=== PATIENT | male | born 1995 | race Hispanic/Latino ===

== ENCOUNTER 2021-04-16 11:28 | Emergency (ER) | payer SELFPAY ==
--- NOTE | 2021-04-16 12:25 | RAD REPORT ---
EXAM DESCRIPTION: RAD - Chest Single View - 04/16/2021 12:14 pm CLINICAL HISTORY: HEMOPTYSIS COMPARISON: No comparisons FINDINGS: Lines: None. Lungs: No evidence of edema or pneumonia. Pleural: No significant pleural effusions or pneumothorax. Cardiac: The heart size is within normal limits. Bones: No acute fractures. Other: IMPRESSION: No acute cardiopulmonary disease.
[2021-04-16 12:49] LABS: BUN Blood Urea Nitrogen 12 mg/dL (7-18); Bicarbonate 28 mmol/L (21-32); Glucose Level 103 mg/dL (74-106); Potassium 3.8 mmol/L (3.5-5.1); Sodium Level 143 mmol/L (136-145)
--- NOTE | 2021-04-16 14:22 | EDPHYS ---
Physician Documentation [facility] Name: Fer Contreras Age: 26 yrs Sex: Male : 1995 Arrival Date: 04/16/2021 Time: 11:33 Bed 12 Private MD: JIN Physician Isai Mims HPI: 04/16 11:51 This 26 yrs old Male presents to ER via Ambulatory with complaints of Coughing jmm up blood. 11:51 The patient or guardian reports cough. Onset: The symptoms/episode began/occurred jmm acutely, today. Modifying factors: The symptoms are alleviated by nothing. the symptoms are aggravated by nothing. Associated signs and symptoms: Pertinent positives: sore throat. This is a 26-year-old male with no chronic medical conditions presents emerged department with complaints of sore throat, states he coughed up a large amount of blood multiple times earlier today. Patient states he does have some slight chest discomfort.. Historical: - Allergies: 11:40 SHELLFISH; ap3 - Home Meds: 11:40 None [Active]; ap3 - PMHx: 11:40 None; ap3 - Immunization history:: Adult Immunizations unknown, Client reports having NOT received the Covid vaccine. - Social history:: Smoking status: Reported history of juuling and/or vaping. Patient uses alcohol, only on a social basis. ROS: 11:51 Constitutional: Negative for fever, chills, and weight loss. jmm 11:51 Abdomen/GI: Negative for abdominal pain, nausea, vomiting, diarrhea, and constipation. 11:51 ENT: Positive for sinus congestion. 11:51 Respiratory: Positive for cough, hemoptysis. 11:51 All other systems are negative. Exam: 11:51 Constitutional: This is a well developed, well nourished patient who is awake, alert, jmm and in no acute distress. Head/Face: atraumatic. Eyes: EOMI, no conjunctival erythema appreciated ENT: Moist Mucus Membranes Neck: Trachea midline, Supple Chest/axilla: Normal chest wall appearance and motion. Cardiovascular: Regular rate and rhythm. No edema appreciated 11:51 Skin: General appearance color normal MS/ Extremity: Moves all extremities, no obvious deformities appreciated, no edema noted to the lower extremities Neuro: Awake and alert, normal gait Psych: Behavior is normal, Mood is normal, Patient is cooperative and pleasant 11:51 Respiratory: the patient does not display signs of respiratory distress, Respirations: normal, Breath sounds: are clear throughout. Vital Signs: 11:38 Temp 97.8(TE); Weight 63.5 kg; Height 5 ft. 5 in. (165.10 cm); ap3 11:38 BP 135 / 76; Pulse 78; Resp 17; Pulse Ox 100% on R/A; ap3 13:08 BP 137 / 81; Pulse 71; Resp 17; Pulse Ox 100% on R/A; ap3 11:38 Body Mass Index 23.30 (63.50 kg, 165.10 cm) ap3 MDM: 11:53 Patient medically screened. jarod 14:19 Data reviewed: vital signs, nurses notes. Counseling: I had a detailed discussion with linda the patient and/or guardian regarding: the historical points, exam findings, and any diagnostic results supporting the discharge/admit diagnosis, lab results, radiology results, the need for outpatient follow up, to return to the emergency department if symptoms worsen or persist or if there are any questions or concerns that arise at home. 04/16 12:01 Order name: D-Dimer; Complete Time: 12:47 [facility] 04/16 12:01 Order name: BMP; Complete Time: 12:59 [facility] 04/16 12:01 Order name: Saline Lock; Complete Time: 12:25 [facility] 04/16 12:01 Order name: Chest Single View XRAY; Complete Time: 12:27 [facility] 04/16 12:01 Order name: Strep; Complete Time: 12:59 [facility] 04/16 12:48 Order name: Throat Culture EDMS Administered Medications: No medications were administered Disposition: 23:13 Co-signature as Attending Physician, Isai Mims MD I agree with the assessment and jarod plan of care. Disposition Summary: 04/16/21 14:20 Discharge Ordered Location: Home [facility] Condition: Stable [facility] Diagnosis - Acute pharyngitis, unspecified [facility] Followup: [facility] - With: Private Physician - When: 2 - 3 days - Reason: Recheck today's complaints, Continuance of care, Re-evaluation by your physician Discharge Instructions: - Discharge Summary Sheet linda - Hemoptysis sherri - Pharyngitis [facility] Forms: - Medication Reconciliation Form [facility] - Thank You Letter jmm - Antibiotic Education jmm - Prescription Opioid Use jmm - Work release form as Prescriptions: - Amoxicillin 875 mg Oral Tablet - take 1 tablet by ORAL route every 12 hours for 10 days; 20 tablet; Refills: 0, jmm Product Selection Permitted Signatures: Dispatcher [employer] Isai Farley MD MD cha Mickail, Joel, PA PA jmm Prokisch, Amanda, RN RN ap3 Corrections: (The following items were deleted from the chart) 11:41 11:40 Allergies: No Known Allergies; ap3 ap3
--- NOTE | 2021-04-16 14:22 | ER ---
Nurse's Notes [facility] Name: Fer Contreras Age: 26 yrs Sex: Male : 1995 Arrival Date: 04/16/2021 Time: 11:33 Bed 12 Private MD: Diagnosis: Acute pharyngitis, unspecified Presentation: 04/16 11:38 Chief complaint: Patient states: He has had runny nose and "sinuses have been acting ap3 up" the last few days. Patient reports having blood in his sputum starting this morning. Coronavirus screen: congestion. Ebola Screen: No symptoms or risks identified at this time. Initial Sepsis Screen: Does the patient meet any 2 criteria? No. Patient's initial sepsis screen is negative. Does the patient have a suspected source of infection? No. Patient's initial sepsis screen is negative. Risk Assessment: Do you want to hurt yourself or someone else? Patient reports no desire to harm self or others. Onset of symptoms was April 14, 2021. 11:38 Method Of Arrival: Ambulatory ap3 11:38 Acuity: SHONNA 4 ap3 Triage Assessment: 11:41 General: Appears in no apparent distress. comfortable, Behavior is calm, cooperative, ap3 appropriate for age. Pain: Denies pain. EENT: Parent/caregiver reports the patient having nasal congestion. Neuro: Level of Consciousness is awake, alert, obeys commands, Oriented to person, place, time, situation, Appropriate for age Moves all extremities. Gait is steady, Speech is normal. Cardiovascular: Patient's skin is warm and dry. Respiratory: Reports allergy symptoms for the last 2-3 days Airway is patent Respiratory effort is even, unlabored, Breath sounds are clear bilaterally. Historical: - Allergies: 11:40 SHELLFISH; ap3 - Home Meds: 11:40 None [Active]; ap3 - PMHx: 11:40 None; ap3 - Immunization history:: Adult Immunizations unknown, Client reports having NOT received the Covid vaccine. - Social history:: Smoking status: Reported history of juuling and/or vaping. Patient uses alcohol, only on a social basis. Screenin:42 Abuse screen: Denies threats or abuse. Nutritional screening: No deficits noted. ap3 Tuberculosis screening: No symptoms or risk factors identified. Fall Risk None identified. Assessment: 11:42 Reassessment: see triage note, please. ap3 12:07 Reassessment: X-Ray at the patients bedside. ap3 13:08 Reassessment: Patient and/or family updated on plan of care and expected duration. Pain ap3 level reassessed. Patient is alert, oriented x 3, equal unlabored respirations, skin warm/dry/pink. 13:51 Reassessment: Patient and/or family updated on plan of care and expected duration. Pain ap3 level reassessed. Patient is alert, oriented x 3, equal unlabored respirations, skin warm/dry/pink. Patient states feeling better. Patient states symptoms have improved. Vital Signs: 11:38 Temp 97.8(TE); Weight 63.5 kg; Height 5 ft. 5 in. (165.10 cm); ap3 11:38 BP 135 / 76; Pulse 78; Resp 17; Pulse Ox 100% on R/A; ap3 13:08 BP 137 / 81; Pulse 71; Resp 17; Pulse Ox 100% on R/A; ap3 11:38 Body Mass Index 23.30 (63.50 kg, 165.10 cm) ap3 ED Course: 11:33 Patient arrived in ED. ds1 11:38 Vera Galeano, JUANA is Primary Nurse. ap3 11:39 Fabián Portillo PA is PHCP. jmm 11:39 Isai Mims MD is Attending Physician. jmm 11:40 Triage completed. ap3 11:42 Arm band placed on right wrist. ap3 11:42 Patient has correct armband on for positive identification. Bed in low position. Call ap3 light in reach. Side rails up X 1. Pulse ox on. NIBP on. Door closed. Noise minimized. 12:14 Chest Single View XRAY In Process Unspecified. EDMS 12:22 Strep swab sent to lab. Inserted saline lock: 20 gauge in right forearm, using aseptic ap3 technique. Blood collected. 14:30 No provider procedures requiring assistance completed. IV discontinued, intact, ap3 bleeding controlled, No redness/swelling at site. Pressure dressing applied. Administered Medications: No medications were administered Outcome: 14:20 Discharge ordered by . jmgordon 14:30 Discharged to home ambulatory. ap3 14:30 Condition: good 14:30 Discharge instructions given to patient, Instructed on discharge instructions, follow up and referral plans. medication usage, Demonstrated understanding of instructions, follow-up care, medications, Prescriptions given X 1. 14:30 Patient left the ED. ap3 Signatures: Dispatcher [employer] EDFabián Stephens PA PA jmm Sanford, Demi ds1 Vera Galeano RN RN ap3 Corrections: (The following items were deleted from the chart) 11:41 11:40 Allergies: No Known Allergies; ap3 ap3
[2021-04-16 14:45] VITALS: TEMP 97.8; O2SAT 100
[2021-04-16 14:46] VITALS: BP 137/81
== END 2021-04-16 14:30 | disposition home or self-care (01) ==
LOC: ER 11:28
DX: J02.9 Acute pharyngitis, unspecified (principal); Z91.013 Allergy to seafood
CPT/HCPCS: 36415; 71045; 80048; 85379; 87070; 87081; 99284

== ENCOUNTER 2024-06-29 07:28 | Emergency (ER) | payer SELFPAY ==
[2024-06-29] MEDS ORDERED: IBUPROFEN 400 MG TAB ONE (07:39)
--- NOTE | 2024-06-29 08:23 | EDPHYS ---
Physician Documentation [facility] Name: Fer Contreras Age: 29 yrs Sex: Male : 1995 Arrival Date: 06/29/2024 Time: 07:28 Bed 8 Private MD: ED Physician Heath Clemons HPI: 06/29 07:45 This 29 yrs old Male presents to ER via EMS with complaints of Chest Pain. sp3 07:45 29-year-old male with no past medical history presents with point tenderness on his sp3 chest upon waking up this morning. He denies any other associated symptoms including headache, fever, shortness of breath, abdominal pain, nausea, vomiting, diarrhea, injury, trauma, bleeding, or any other signs or symptoms on ROS at this time. As per EMS area is tender to palpation. Normal vital signs and prehospital ECG and route.. Historical: - Allergies: 07:33 SHELLFISH; ll1 - Home Meds: 07:33 None [Active]; ll1 - PMHx: 07:33 None; ll1 - PSHx: 07:33 None; ll1 - Immunization history:: Adult Immunizations up to date. - Infectious Disease History:: Denies. - Social history:: Smoking status: Patient reports the use of cigarette tobacco products, smokes one pack cigarettes per day. Reported history of juuling and/or vaping. ROS: 07:46 Constitutional: Negative for fever, chills, and weight loss, Eyes: Negative for injury, sp3 pain, redness, and discharge, ENT: Negative for injury, pain, and discharge, Neck: Negative for injury, pain, and swelling, Cardiovascular: Negative for chest pain, palpitations, and edema, Respiratory: Negative for shortness of breath, cough, wheezing, and pleuritic chest pain, Abdomen/GI: Negative for abdominal pain, nausea, vomiting, diarrhea, and constipation, Back: Negative for injury and pain, : Negative for injury, bleeding, discharge, and swelling, Skin: Negative for injury, rash, and discoloration, Neuro: Negative for headache, weakness, numbness, tingling, and seizure, Psych: Negative for depression, anxiety, suicide ideation, homicidal ideation, and hallucinations, Allergy/Immunology: Negative for hives, rash, and allergies, Endocrine: Negative for neck swelling, polydipsia, polyuria, polyphagia, and marked weight changes, Hematologic/Lymphatic: Negative for swollen nodes, abnormal bleeding, and unusual bruising, 07:46 All other systems are negative, Exam: 07:46 Constitutional: This is a well developed, well nourished patient who is awake, alert, sp3 and in no acute distress. Head/Face: Normocephalic, atraumatic. Eyes: Pupils equal round and reactive to light, extra-ocular motions intact. Lids and lashes normal. Conjunctiva and sclera are non-icteric and not injected. Cornea within normal limits. Periorbital areas with no swelling, redness, or edema. ENT: Nares patent. No nasal discharge, no septal abnormalities noted. External auditory canals are clear. Oropharynx with no redness, swelling, or masses, exudates, or evidence of obstruction, uvula midline. Mucous membranes moist. Neck: Trachea midline, no thyromegaly or masses palpated, and no cervical lymphadenopathy. Supple, full range of motion without nuchal rigidity, or vertebral point tenderness. No Meningismus. Cardiovascular: Regular rate and rhythm with a normal S1 and S2. No gallops, murmurs, or rubs. Normal PMI, no JVD. No pulse deficits. Respiratory: Lungs have equal breath sounds bilaterally, clear to auscultation and percussion. No rales, rhonchi or wheezes noted. No increased work of breathing, no retractions or nasal flaring. Abdomen/GI: Soft, non-tender, with normal bowel sounds. No distension or tympany. No guarding or rebound. No evidence of tenderness throughout. Back: No spinal tenderness. No costovertebral tenderness. Full range of motion. Skin: Warm, dry with normal turgor. Normal color with no rashes, no lesions, and no evidence of cellulitis. MS/ Extremity: Pulses equal, no cyanosis. Neurovascular intact. Full, normal range of motion. Neuro: Awake and alert, GCS 15, oriented to person, place, time, and situation. Cranial nerves II-XII grossly intact. Motor strength 5/5 in all extremities. Sensory grossly intact. Cerebellar exam normal. Normal gait. Psych: Awake, alert, with orientation to person, place and time. Behavior, mood, and affect are within normal limits. 07:46 Chest/axilla: Patient tender over his lower rib area on the left side. Small contusion noted there as well. Cardiovascular exam is normal. Pain is very reproducible.. 07:46 ECG was reviewed by the Attending Physician. EKG demonstrates normal sinus rhythm at 70 sp3 bpm with normal intervals, normal QRS, normal axis, mild J-point elevation without signs or symptoms of acute ischemia. Vital Signs: 07:30 BP 132 / 105; Pulse 76; Resp 16; Temp 97.4; Pulse Ox 99% on R/A; Weight 82.55 kg; ll1 Height 5 ft. 5 in. ; Pain 8/10; 07:41 BP 129 / 95; ll1 08:29 BP 121 / 83; Pulse 61; Resp 16; Pulse Ox 99% on R/A; ll1 07:30 Body Mass Index 30.29 (82.55 kg, 165.1 cm) ll1 07:30 Pain Scale: Adult ll1 MDM: 07:36 Medical Screening Exam initiated sp3 07:47 Data reviewed: vital signs, nurses notes, EMS record, EKG, radiologic studies. ED sp3 course: 29-year-old male with point tenderness on his chest. Differential diagnosis includes contusion versus musculoskeletal inflammation. I am not highly suspicious of acute coronary syndrome, vascular/aortic pathology, pulmonary pathology, pneumonia, pleurisy, GI pathology, or any other critical process at this time. EKG is normal and chest x-ray is pending. Ibuprofen has been given in the ED and patient had aspirin and route. If chest x-ray negative we will safely discharge patient home.. 08:22 ED course: Chest x-ray demonstrates no significant abnormality. Aortic silhouette is sp3 normal. No effusions noted. We will safely discharge patient home at this time.. 06/29 07:37 Order name: CXR XRAY sp3 06/29 07:37 Order name: EKG; Complete Time: 07:37 sp3 06/29 07:37 Order name: EKG - Nurse/Tech; Complete Time: 07:38 sp3 Administered Medications: 07:41 Drug: Ibuprofen PO 800 mg PO once Route: PO; ll1 08:30 Follow up: Response: No adverse reaction ll1 Disposition Summary: 06/29/24 08:22 Discharge Ordered Notes: Location: Home sp3 Condition: Stable sp3 Diagnosis - Chest wall pain sp3 Followup: sp3 - With: Private Physician - When: Upon discharge from the Emergency Department - Reason: Continuance of care Discharge Instructions: - Discharge Summary Sheet sp3 - Chest Wall Pain sp3 Forms: - Medication Reconciliation Form sp3 - Antibiotic Education sp3 - Prescription Opioid Use sp3 - Patient Portal Instructions sp3 - Leadership Thank You Letter sp3 Prescriptions: - Diclofenac Sodium 75 mg Oral Tablet Sustained Release - take 1 tablet ORAL route 2 times per day; 30 tablet; Refills: 0, Product sp3 Selection Permitted Signatures: Dispatcher [employer] Azul Darby RN RN Rafael Hall RN RN ll1 Heath Clemons MD MD sp3
--- NOTE | 2024-06-29 08:23 | ER ---
Nurse's Notes [facility] Name: Fer Contreras Age: 29 yrs Sex: Male : 1995 Arrival Date: 06/29/2024 Time: 07:28 Bed 8 Private MD: Diagnosis: Chest wall pain Presentation: 06/29 07:30 Chief complaint: Patient states: L sided CP/rib pain. EMS states: aspirin 324 mg PO, 20 ll1 G R AC. VSS, NS. Coronavirus screen: Client denies travel out of the [place] in the last 14 days. At this time, the client does not indicate any symptoms associated with coronavirus-19. Ebola Screen: Patient denies travel to an Ebola-affected area in the 21 days before illness onset. Initial Sepsis Screen: Does the patient meet any 2 criteria? No. Patient's initial sepsis screen is negative. Does the patient have a suspected source of infection? No. Patient's initial sepsis screen is negative. Risk Assessment: Do you want to hurt yourself or someone else? Patient reports no desire to harm self or others. 07:30 Method Of Arrival: EMS: [facility] ll1 07:30 Acuity: SHONNA 3 ll1 07:38 Onset of symptoms was June 29, 2024. Triage Assessment: 07:30 General: Appears in no apparent distress. Behavior is calm, cooperative, appropriate ll1 for age. Pain: Complains of pain in L CP Pain currently is 8 out of 10 on a pain scale. Cardiovascular: Reports chest pain. Musculoskeletal: tender in lower rib area. Historical: - Allergies: 07:33 SHELLFISH; ll1 - Home Meds: 07:33 None [Active]; ll1 - PMHx: 07:33 None; ll1 - PSHx: 07:33 None; ll1 - Immunization history:: Adult Immunizations up to date. - Infectious Disease History:: Denies. - Social history:: Smoking status: Patient reports the use of cigarette tobacco products, smokes one pack cigarettes per day. Reported history of juuling and/or vaping. Screenin:[address] [facility] ED Fall Risk Assessment (Adult) History of falling in the last 3 months, ph including since admission No falls in past 3 months (0 pts) Confusion or Disorientation No (0 pts) Intoxicated or Sedated No (0 pts) Impaired Gait No (0 pts) Mobility Assist Device Used No (0 pt) Altered Elimination No (0 pt) Score/Fall Risk Level 0 - 2 = Low Risk Oriented to surroundings, Maintained a safe environment, Hourly rounding (assess needs \T\ fall precautionary measures) done. Abuse screen: Denies threats or abuse. Denies injuries from another. Nutritional screening: No deficits noted. Tuberculosis screening: No symptoms or risk factors identified. Assessment: 07:38 General: Appears in no apparent distress. Behavior is calm, cooperative. Pain: ph Complains of pain in left lateral anterior chest Pain does not radiate. Pain began last night. Neuro: Level of Consciousness is awake, alert, obeys commands, Oriented to person, place, time, situation. Cardiovascular: Reports chest pain, Capillary refill < 3 seconds in bilateral fingers Patient's skin is warm and dry. Rhythm is regular. Respiratory: Reports pain with movement pain with respiration Airway is patent Respiratory effort is even, unlabored, Respiratory pattern is regular, symmetrical. Derm: Skin is pink, warm \T\ dry. 08:29 Reassessment: No changes from previously documented assessment. Patient and/or family ll1 updated on plan of care and expected duration. Pain level reassessed. Patient is alert, oriented x 3, equal unlabored respirations, skin warm/dry/pink. Vital Signs: 07:30 BP 132 / 105; Pulse 76; Resp 16; Temp 97.4; Pulse Ox 99% on R/A; Weight 82.55 kg; ll1 Height 5 ft. 5 in. ; Pain 8/10; 07:41 BP 129 / 95; ll1 08:29 BP 121 / 83; Pulse 61; Resp 16; Pulse Ox 99% on R/A; ll1 07:30 Body Mass Index 30.29 (82.55 kg, 165.1 cm) ll1 07:30 Pain Scale: Adult ll1 ED Course: 07:30 Patient arrived in ED. ll1 07:30 Provided Education on: ER procedures and process. ll1 07:33 Triage completed. ll1 07:34 No provider procedures requiring assistance completed. Maintain EMS IV. Dressing ll1 intact. Good blood return noted. Site clean \T\ dry. Gauge \T\ site: 20 G R AC. Flushed with 10 mL NS. Patient maintains SpO2 saturation greater than 95% on room air. 07:36 Heath Clemons MD is Attending Physician. sp3 07:37 Azul Hernandez, RN is Primary Nurse. ph 07:37 Arm band placed on Patient placed in an exam room, on a stretcher, on pulse oximetry. ph 07:38 Patient has correct armband on for positive identification. Bed in low position. Call ph light in reach. Side rails up X 1. Pulse ox on. NIBP on. Door closed. Noise minimized. Warm blanket given. 08:24 CXR XRAY In Process Unspecified. EDMS 08:30 IV discontinued, intact, bleeding controlled, No redness/swelling at site. Pressure ll1 dressing applied. Administered Medications: 07:41 Drug: Ibuprofen PO 800 mg PO once Route: PO; ll1 08:30 Follow up: Response: No adverse reaction ll1 Medication: 07:38 VIS not applicable for this client. ph Outcome: 08:22 Discharge ordered by . sp3 08:29 Discharged to home ambulatory, ll1 08:29 Condition: stable 08:29 Discharge instructions given to patient, Instructed on discharge instructions, follow up and referral plans. medication usage, Demonstrated understanding of instructions, follow-up care, medications, Prescriptions given X 1, 08:30 Patient left the ED. ll1 Signatures: Dispatcher [employer] EDVA Azul Hernandez, RN RN Rafael Song RN RN ll1 Heath Clemons MD MD sp3
--- NOTE | 2024-06-29 08:30 | RAD REPORT ---
EXAMINATION: ONE VIEW CHEST XR CLINICAL INDICATION: Male, 29 years old.,CHEST PAIN TECHNIQUE: Frontal chest projection is submitted. Examination is limited by patient positioning and t echnique. COMPARISON: 04/16/2021 FINDINGS: Decreased inspiratory effort limits evaluation. Streaky right medial basilar opacity, could reflect a telectasis or superimposition of vascular structures. Early airspace disease not excluded. No pneumothorax or sizable effusion. The heart is normal in size. Mediastinal contours are unremarkable. IMPRESSION: Medial right basilar streaky airspace opacity as above, although decreased inspiratory effort limits evaluation.
--- NOTE | 2024-06-30 11:53 | EKG ---
Test Date: 2024-06-29 Test Time: 07:31:56 Landscape Horticulture Instructor: PH MEASUREMENT RESULTS: Intervals: Rate: 70 OH: 190 QRSD: 86 QT: 378 QTc: 408 [place]: P: 42 OH: 190 QRS: 61 T: 33 INTERPRETIVE STATEMENTS: Normal sinus rhythm Normal ECG No previous ECG available for comparison Electronically Signed On 06-30-24 11:52:20 WAIST PRESSER by Vic Patel
[2024-07-01 02:03] VITALS: BP 121/83; TEMP 97.4; O2SAT 99
== END 2024-06-29 08:30 | disposition home or self-care (01) ==
LOC: ER 07:28
DX: R07.89 Other chest pain (principal); F17.290 Nicotine dependence, other tobacco product, uncomplicated; Z91.013 Allergy to seafood
CPT/HCPCS: 71045; 93005; 99284

== ENCOUNTER 2025-01-18 00:53 | Emergency (ER) | payer SELFPAY ==
[2025-01-18] MEDS ORDERED: LORazepam 2 MG/ML VIAL ONE (02:16)
[2025-01-18] MEDS ORDERED: NA CHLORIDE 0.9% 1,000 ML ONE (02:17)
[2025-01-18 02:33] LABS: Absolute Lymphocytes (CBC) 1.5 K/uL (0.7-4.9); Hematocrit 43.9 % (39.6-49.0); Hemoglobin 15.3 g/dL (13.6-17.9); MCH 29.9 pg (27.0-35.0); MCHC 34.8 g/dL (32.0-36.0); MCV 85.8 fL (80-100); MPV 8.3 fL (7.6-11.3); Nucleated RBC Absolute Count 0.0 (0-0); Nucleated Red Blood Cells % 0.1 % (0-0); RBC Red Blood Cell Count 5.11 M/uL (4.33-5.43); White Blood Count 8.70 thou/uL (4.3-10.9)
[2025-01-18 02:44] LABS: Anion Gap 11.3 mEq/L (5.0-15.0); BUN Blood Urea Nitrogen 14.0 mg/dL (7-18); Glucose Level 130.0 mg/dL (74-106); Potassium 3.3 mEq/L (3.5-5.1); Thyroid Stimulating Hormone 3.48 uIU/mL (0.358-3.740)
--- NOTE | 2025-01-18 03:35 | EDPHYS ---
Physician Documentation [facility] Name: Fer Contreras Age: 30 yrs Sex: Male : 1995 Arrival Date: 01/18/2025 Time: 00:53 Bed 18 Private MD: ED Physician Ibrahima Greco HPI: 01/18 01:24 This 30 yrs old Male presents to ER via Ambulatory with complaints of rn Intermittent numbness of lower ext, Irregular Pulse, Anxiety. 01:24 Patient reports anxiety, feeling heart racing and palpitations. Patient reports just rn feels bad overall. Patient is a daily drinker and has been decreasing his alcohol intake lately. Last drink was yesterday. No fever or chills. No chest pain or shortness of breath. No abdominal pain. Denies drug use no known medical problems. Patient states is more aware of his heart rate when he is trying to sleep.. Historical: - Allergies: 01:14 SHELLFISH; jb4 - PMHx: 01:14 None; jb4 - PSHx: 01:14 None; jb4 - Immunization history:: Adult Immunizations unknown. - Infectious Disease History:: Denies. - Social history:: Smoking status: Reported history of juuling and/or vaping. Patient uses alcohol, on a daily basis. - Family history:: not pertinent. - Hospitalizations: : No recent hospitalization is reported. ROS: 01:24 Constitutional: Negative for fever, chills, and weight loss, Cardiovascular: Negative rn for chest pain, positive for heart racing Respiratory: Negative for shortness of breath, cough, wheezing, and pleuritic chest pain, Abdomen/GI: Negative for abdominal pain, nausea, vomiting, diarrhea, and constipation, MS/Extremity: Negative for injury and deformity, Skin: Negative for injury, rash, and discoloration, Neuro: Positive for intermittent tingling throughout Exam: 01:24 Constitutional: This is a well developed, well nourished patient who is awake, alert, rn and in no acute distress. Head/Face: Normocephalic, atraumatic. ENT: Dry mucous membranes Cardiovascular: Tachycardic, regular. Respiratory: Lungs have equal breath sounds bilaterally, clear to auscultation and percussion. No rales, rhonchi or wheezes noted. No increased work of breathing, no retractions or nasal flaring. Abdomen/GI: Soft, non-tender, with normal bowel sounds. No distension or tympany. No guarding or rebound. No evidence of tenderness throughout. MS/ Extremity: Pulses equal, no cyanosis. Neurovascular intact. Full, normal range of motion. Equal circumference. Neuro: Awake and alert, GCS 15 03:28 ECG was reviewed by the Attending Physician. rn Vital Signs: 01:10 BP 146 / 109; Pulse 114; Resp 16; Temp 97.2(O); Pulse Ox 97% on R/A; Weight 73.48 kg jb4 (R); Height 5 ft. 5 in. (R); 02:07 BP 151 / 90; Pulse 96; Resp 20; Pulse Ox 99% ; sd4 04:18 BP 123 / 69; Pulse 90; Resp 16; Pulse Ox 97% ; sd4 01:10 Body Mass Index 26.96 (73.48 kg, 165.1 cm) jb4 MDM: 01:09 Medical Screening Exam initiated rn 03:29 Differential diagnosis: arrythmia, dehydration, stress disorder, Alcohol withdrawal. rn Data reviewed: vital signs, nurses notes, lab test result(s), EKG, and as a result, I will discharge patient. Care significantly affected by the following chronic conditions: Alcoholism. Counseling: I had a detailed discussion with the patient and/or guardian regarding the historical points, exam findings, and any diagnostic results supporting the discharge/admit diagnosis, lab results, the need for outpatient follow up, to return to the emergency department if symptoms worsen or persist or if there are any questions or concerns that arise at home. Response to treatment: the patient's symptoms have markedly improved after treatment, and as a result, I will discharge patient. Special discussion: I discussed with the patient/guardian in detail that at this point there is no indication for admission to the hospital. It is understood, however, that if the symptoms persist or worsen the patient needs to return immediately for re-evaluation. ED course: Patient with mild alcohol withdrawal, no complication, no sign of delirium tremens. Also with hypokalemia. Will discharge home with return precautions and advised him to seek care for alcohol withdrawal such as detox facility. Also gave him instructions how to decrease his intake slowly as to not precipitate withdrawal.. 01/18 01:23 Order name: CBC with Diff; Complete Time: 02:45 rn 08/06 01:23 Order name: Basic Metabolic Panel; Complete Time: 02:45 rn 01/18 01:23 Order name: TSH; Complete Time: 02:45 rn 01/18 01:23 Order name: T4 Free; Complete Time: 02:45 rn 01/18 01:23 Order name: EKG; Complete Time: 01:24 rn 01/18 01:23 Order name: IV Start; Complete Time: 02:02 rn 01/18 01:23 Order name: EKG - Nurse/Tech; Complete Time: 02:48 rn EC:28 Rate is 101 beats/min. Rhythm is regular. QRS [place] is Normal. MA interval is normal. rn QRS interval is normal. QT interval is normal. No Q waves. T waves are Normal. No ST changes noted. Clinical impression: Sinus tachycardia. Interpreted by me. Reviewed by me. Administered Medications: 02:18 Drug: Ativan IVP 1 mg IVP once Route: IVP; Site: right antecubital; sd4 04:21 Follow up: Response: No adverse reaction sd4 02:19 Drug: NS 0.9% IV 1000 ml IV at 1000 ml once; to be given as a bolus over 60 minutes sd4 Route: IV; Rate: 1000 ml; Site: right antecubital; 04:17 Follow up: Response: No adverse reaction; IV Status: Completed infusion sd4 04:10 Drug: Potassium PO Effervescent Tablet 50 mEq PO once; dissolve in 4 ounces of water or sd4 juice Route: PO; 04:17 Follow up: Response: No adverse reaction sd4 04:10 Drug: Potassium Chloride PO 40 mEq PO once Route: PO; sd4 04:16 Follow up: Response: No adverse reaction sd4 Disposition Summary: 01/18/25 03:34 Discharge Ordered Notes: Location: Home rn Problem: new rn Symptoms: have improved rn Condition: Stable rn Diagnosis - Alcohol dependence with withdrawal, uncomplicated rn - Hypokalemia rn Followup: rn - With: Private Physician - When: As needed - Reason: Recheck today's complaints, Re-evaluation by your physician Discharge Instructions: - Discharge Summary Sheet rn - Finding Treatment for Addiction rn - Alcohol Withdrawal Syndrome rn - Hypokalemia rn Forms: - Medication Reconciliation Form rn - Antibiotic bakery pastry internship - Prescription Opioid Use rn - Patient Portal Instructions rn - Leadership Thank You Letter rn Signatures: Dispatcher [employer] EDMS Greco, Ibrahima, MD MD rn Dubberly, Baljinder, RN RN jb4 Gauri Longoria RN RN sd4
--- NOTE | 2025-01-18 03:35 | ER ---
Nurse's Notes [facility] Name: Fer Contreras Age: 30 yrs Sex: Male : 1995 Arrival Date: 01/18/2025 Time: 00:53 Bed 18 Private MD: Diagnosis: Alcohol dependence with withdrawal, uncomplicated;Hypokalemia Presentation: 01/18 01:10 Chief complaint: Patient states: I have numbness to my left upper thigh and now jb4 radiates down to my left knee. I feel like I have an irregular heart beat even when I am trying to sleep. Coronavirus screen: At this time, the client does not indicate any symptoms associated with coronavirus-19. Ebola Screen: No symptoms or risks identified at this time. Initial Sepsis Screen: Does the patient meet any 2 criteria? HR > 90 bpm. Yes Does the patient have a suspected source of infection? No. Patient's initial sepsis screen is negative. Risk Assessment: Do you want to hurt yourself or someone else? Patient reports no desire to harm self or others. Onset of symptoms was January 18, 2025. Transition of care: patient was not received from another setting of care. 01:10 Method Of Arrival: Ambulatory jb4 01:10 Acuity: SHONNA 3 jb4 Historical: - Allergies: 01:14 SHELLFISH; jb4 - PMHx: 01:14 None; jb4 - PSHx: 01:14 None; jb4 - Immunization history:: Adult Immunizations unknown. - Infectious Disease History:: Denies. - Social history:: Smoking status: Reported history of juuling and/or vaping. Patient uses alcohol, on a daily basis. - Family history:: not pertinent. - Hospitalizations: : No recent hospitalization is reported. Screenin:07 [facility] ED Fall Risk Assessment (Adult) History of falling in the last 3 months, sd4 including since admission No falls in past 3 months (0 pts) Confusion or Disorientation No (0 pts) Intoxicated or Sedated No (0 pts) Impaired Gait No (0 pts) Mobility Assist Device Used No (0 pt) Altered Elimination No (0 pt) Score/Fall Risk Level 0 - 2 = Low Risk Oriented to surroundings, Maintained a safe environment, Educated pt \T\ family on fall prevention, incl call for assistance when getting out of bed. Abuse screen: Denies threats or abuse. Denies injuries from another. Nutritional screening: No deficits noted. Tuberculosis screening: No symptoms or risk factors identified. Assessment: 02:03 General: Appears in no apparent distress. Behavior is calm, cooperative, Reports. Pain: sd4 Denies pain. Pain: Pain began. Neuro: No deficits noted. Reports. Cardiovascular: Reports palpitations, Capillary refill < 3 seconds. Respiratory: No deficits noted. Airway is patent. GI: No deficits noted. No signs and/or symptoms were reported involving the gastrointestinal system. : No deficits noted. No signs and/or symptoms were reported regarding the genitourinary system. EENT: No deficits noted. No signs and/or symptoms were reported regarding the EENT system. Derm: No deficits noted. No signs and/or symptoms reported regarding the dermatologic system. Musculoskeletal: Reports numbness in left leg. Vital Signs: 01:10 BP 146 / 109; Pulse 114; Resp 16; Temp 97.2(O); Pulse Ox 97% on R/A; Weight 73.48 kg jb4 (R); Height 5 ft. 5 in. (R); 02:07 BP 151 / 90; Pulse 96; Resp 20; Pulse Ox 99% ; sd4 04:18 BP 123 / 69; Pulse 90; Resp 16; Pulse Ox 97% ; sd4 01:10 Body Mass Index 26.96 (73.48 kg, 165.1 cm) 4 ED Course: 00:59 Patient arrived in ED. jj6 01:09 Ibrahima Greco MD is Attending Physician. rn 01:13 Triage completed. jb4 01:14 Arm band placed on right wrist. jb4 01:33 Gauri Longoria, RN is Primary Nurse. sd4 02:07 Patient has correct armband on for positive identification. Placed in gown. Bed in low sd4 position. Call light in reach. Side rails up X 1. Client placed on continuous cardiac and pulse oximetry monitoring. NIBP monitoring applied. 02:07 No provider procedures requiring assistance completed. Inserted saline lock: 20 gauge sd4 in left antecubital area, using aseptic technique. Blood collected. Flushed with 10 mL NS Accessed. Patient maintains SpO2 saturation greater than 95% on room air. 02:48 EKG done, by ED staff, reviewed by Ibrahima Greco MD. 04:18 Provided Education on: anxiety . sd4 04:18 IV discontinued, intact, bleeding controlled, No redness/swelling at site. Pressure sd4 dressing applied. Administered Medications: 02:18 Drug: Ativan IVP 1 mg IVP once Route: IVP; Site: right antecubital; sd4 04:21 Follow up: Response: No adverse reaction sd4 02:19 Drug: NS 0.9% IV 1000 ml IV at 1000 ml once; to be given as a bolus over 60 minutes sd4 Route: IV; Rate: 1000 ml; Site: right antecubital; 04:17 Follow up: Response: No adverse reaction; IV Status: Completed infusion sd4 04:10 Drug: Potassium PO Effervescent Tablet 50 mEq PO once; dissolve in 4 ounces of water or sd4 juice Route: PO; 04:17 Follow up: Response: No adverse reaction sd4 04:10 Drug: Potassium Chloride PO 40 mEq PO once Route: PO; sd4 04:16 Follow up: Response: No adverse reaction sd4 Medication: 02:07 VIS not applicable for this client. sd4 Outcome: 03:34 Discharge ordered by . rn 04:18 Discharged to home ambulatory, sd4 04:18 Condition: stable 04:18 Discharge instructions given to patient, Instructed on discharge instructions, follow up and referral plans. Demonstrated understanding of instructions, follow-up care, Prescriptions given X 04:22 Patient left the ED. sd4 Signatures: Ibrahima Greco MD MD rn Bryson, James, RN RN jb4 Erin Mattson jj6 Lucy Russo Shamara, RN RN sd4
[2025-01-18] MEDS ORDERED: POTASSIUM CL SA 10 MEQ TAB PO ONE (03:46)
[2025-01-18] MEDS ORDERED: POTASSIUM 25 MEQ EFFERV TAB ONE (03:46)
[2025-01-18 04:29] VITALS: TEMP 97.2
[2025-01-18 04:31] VITALS: BP 123/69; O2SAT 97
== END 2025-01-18 04:22 | disposition home or self-care (01) ==
LOC: ER 00:53
DX: F10.239 Alcohol dependence with withdrawal, unspecified (principal); E87.6 Hypokalemia; F17.290 Nicotine dependence, other tobacco product, uncomplicated
CPT/HCPCS: 36415; 80048; 84439; 84443; 85025; 93005; 96361; 96374; 99285; J7030